=== PATIENT | female | born 1980 | race Caucasian/White ===

== ENCOUNTER 2018-06-04 12:53 | Emergency (ER) | payer OTHER ==
[2018-06-04] MEDS ORDERED: NA CHLORIDE 0.9% 1,000 ML ONE (13:48)
[2018-06-04 14:04] LABS: Absolute Lymphocytes (CBC) 1.1 K/uL (0.7-4.9); Absolute Monocytes 0.2 K/uL (0.1-1.3); Absolute Neutrophil 3.8 K/uL (1.8-8.0); Basophils % 0.6 % (0-1.3); Eosinophils % 0.4 % (0-4.4); Hematocrit 37.6 % (36.0-45.0); Lymphocytes % 21.1 % (15.3-44.8); MPV 9.7 fL (7.6-11.3); Monocytes % 4.3 % (3.3-12.3); RBC Red Blood Cell Count 4.11 M/uL (3.86-4.86)
[2018-06-04 14:16] LABS: Potassium 3.1 mmol/L (3.5-5.1)
[2018-06-04 14:18] LABS: Urine Appearance CLOUDY; Urine Blood 3+ (NEG); Urine Color RED; Urine Glucose NEGATIVE (NEG); Urine Protein 3+ (NEG); Urine Urobilinogen 0.2 mg/dL (0.2-1.0); Urine pH 5.5 (5.0-7.0)
[2018-06-04 14:21] LABS: Urine Blood 3+ (NEG); Urine Glucose NEGATIVE (NEG); Urine Protein 3+ (NEG); Urine pH 5.5 (5.0-7.0)
[2018-06-04] MEDS ORDERED: METHYLERGONOVINE 0.2MG/ML AMP IM ONE (14:21)
[2018-06-04] MEDS ORDERED: MEDROXYPROGESTERONE 5 MG TAB PO ONE (14:30)
[2018-06-04 14:32] LABS: Urine Bilirubin NEGATIVE (NEG)
[2018-06-04 14:57] LABS: Urine Microscopic Reflex ORDER UMIC
[2018-06-04 15:01] LABS: Urine Bacteria <20 /HPF (<20); Urine RBC TNTC /HPF (NONE SEEN)
[2018-06-04 15:02] LABS: Urine Culture Reflex Order REFLEXED
[2018-06-04] MEDS ORDERED: ONDANSETRON 4 MG/2 ML VIAL ONE (15:44)
--- NOTE | 2018-06-04 15:48 | EDPHYS ---
Physician Documentation [facility] Name: Emily Ríos Age: 38 yrs Sex: Female : 1980 Arrival Date: 06/04/2018 Time: 12:57 Bed 4 Private MD: out of town, doctor ED Physician Amauri Crystal HPI: 06/04 18:38 This 38 yrs old Female presents to ER via Wheelchair with complaints of gs Vaginal Bleeding. 18:38 Onset: The symptoms/episode began/occurred 3 month(s) ago. 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 - Social history:: Smoking status: Patient/guardian denies using tobacco. - Ebola Screening: : No symptoms or risks identified at this time. ROS: 19:39 All other systems are negative. gs Exam: 19:39 Head/Face: Normocephalic, atraumatic. Eyes: Pupils equal round and reactive to light, gs extra-ocular motions intact. Lids and lashes normal. Conjunctiva and sclera are non-icteric and not injected. Cornea within normal limits. Periorbital areas with no swelling, redness, or edema. ENT: Nares patent. No nasal discharge, no septal abnormalities noted. Tympanic membranes are normal and external auditory canals are clear. Oropharynx with no redness, swelling, or masses, exudates, or evidence of obstruction, uvula midline. Mucous membranes moist. Neck: Trachea midline, no thyromegaly or masses palpated, and no cervical lymphadenopathy. Supple, full range of motion without nuchal rigidity, or vertebral point tenderness. No Meningismus. Chest/axilla: Normal chest wall appearance and motion. Nontender with no deformity. No lesions are appreciated. Cardiovascular: Regular rate and rhythm with a normal S1 and S2. No gallops, murmurs, or rubs. Normal PMI, no JVD. No pulse deficits. Respiratory: Lungs have equal breath sounds bilaterally, clear to auscultation and percussion. No rales, rhonchi or wheezes noted. No increased work of breathing, no retractions or nasal flaring. Abdomen/GI: Soft, non-tender, with normal bowel sounds. No distension or tympany. No guarding or rebound. No evidence of tenderness throughout. Back: No spinal tenderness. No costovertebral tenderness. Full range of motion. Skin: Warm, dry with normal turgor. Normal color with no rashes, no lesions, and no evidence of cellulitis. MS/ Extremity: Pulses equal, no cyanosis. Neurovascular intact. Full, normal range of motion. Neuro: Awake and alert, GCS 15, oriented to person, place, time, and situation. Cranial nerves II-XII grossly intact. Motor strength 5/5 in all extremities. Sensory grossly intact. Cerebellar exam normal. Normal gait. 19:39 Constitutional: The patient appears in no acute distress, alert, awake. Vital Signs: 13:08 BP 140 / 82; Pulse 130; Resp 18 S; Temp 98.1(O); Pulse Ox 100% on R/A; Weight 52.16 kg aa5 (R); Height 5 ft. 4 in. (162.56 cm) (R); Pain 0/10; 14:44 BP 123 / 71; Pulse 95; Resp 18; Pulse Ox 100% on R/A; tw2 15:20 BP 120 / 67; Pulse 87; Resp 17; Pulse Ox 100% on R/A; tw2 16:34 BP 115 / 76; Pulse 86; Resp 17; Pulse Ox 100% on R/A; tw2 13:08 Body Mass Index 19.74 (52.16 kg, 162.56 cm) aa5 MDM: 13:31 Patient medically screened. 19:39 Differential diagnosis: menometrorrhagia, menorrhea, uterine fibroids. Data reviewed: vital signs, nurses notes, lab test result(s). Physician consultation: HER OB WILL SEE TOMORROW. 06/04 13:25 Order name: UA; Complete Time: 15:41 tw2 06/04 13:35 Order name: Urine Dipstick--Ancillary (enter results); Complete Time: 15:41 ss 06/04 13:35 Order name: CBC with Diff; Complete Time: 15:41 06/04 13:35 Order name: Basic Metabolic Panel; Complete Time: 15:41 06/04 13:35 Order name: T\T\S; Complete Time: 15:41 06/04 13:35 Order name: Urine --Ancillary (enter results); Complete Time: 15:41 06/04 14:38 Order name: ABO/RH no charge; Complete Time: 15:41 EDIN 06/04 15:02 Order name: Urine Microscopic Only; Complete Time: 15:41 EDIN 06/04 15:06 Order name: Urine Culture [facility] 06/04 13:15 Order name: Urine Test (obtain specimen); Complete Time: 13:36 06/04 13:15 Order name: Urine Dipstick-Ancillary (obtain specimen); Complete Time: 13:36 06/04 13:36 Order name: IV Start; Complete Time: 14:04 tw2 Administered Medications: 14:00 Drug: NS 0.9% 1000 ml Route: IV; Rate: 1 bolus; Site: left antecubital; tw2 15:36 Follow up: Response: No adverse reaction; IV Status: Completed infusion; IV Intake: tw2 1000ml 14:25 Drug: Provera 10 mg Route: PO; tw2 15:36 Follow up: Response: No adverse reaction tw2 14:25 Drug: METHERgine 0.2 mg Route: IM; Site: right deltoid; tw2 15:36 Follow up: Response: No adverse reaction tw2 15:32 Drug: Zofran 4 mg Route: IVP; Site: left antecubital; tw2 16:30 Follow up: Response: No adverse reaction; Nausea is decreased tw2 Disposition: 06/04/18 15:46 Discharged to Home. Impression: Abnormal uterine and vaginal bleeding, unspecified. - Condition is Stable. - Discharge Instructions: Abnormal Uterine Bleeding. - Prescriptions for Methergine 0.2 mg Oral tablet - take 1 tablet by ORAL route every 6 hours; 6 tablet. Provera 10 mg Oral tablet - take 1 tablet by ORAL route once daily; 5 tablet. - Work release form, Family Work Release, Medication Reconciliation Form, Thank You Letter, Antibiotic Education, Prescription Opioid Use form. - Follow up: Private Physician; When: Tomorrow. - Problem is an ongoing problem. - Symptoms have improved. Signatures: [facility] Desirae Brennan RN RN aa5 Mehreen King RN RN tw2 Amauri Crystal MD MD Corrections: (The following items were deleted from the chart) 16:34 15:46 06/04/2018 15:46 Discharged to Home. Impression: Abnormal uterine and vaginal tw2 bleeding, unspecified. Condition is Stable. Forms are Work release form, Family Work Release, Medication Reconciliation Form, Thank You Letter, Antibiotic Education, Prescription Opioid Use. Follow up: Private Physician; When: Tomorrow. Problem is an ongoing problem. Symptoms have improved. gs
--- NOTE | 2018-06-04 15:48 | ER ---
Nurse's Notes [facility] Name: Emily Ríos Age: 38 yrs Sex: Female : 1980 Arrival Date: 06/04/2018 Time: 12:57 Bed 4 Private MD: out of town, doctor Diagnosis: Abnormal uterine and vaginal bleeding, unspecified Presentation: 06/04 13:05 Presenting complaint: Patient states: heavy vaginal bleeding with large clots that aa5 began 1 1/2 hours ago. Pt states "I've been dealing with vaginal bleeding but it's never been this heavy and I am supposed to see a supervisor [employer] for a second opinion before I get a hysterectomy done". Pt states "I am soaking a pad every 10 minutes". 13:05 Transition of care: patient was not received from another setting of care. Onset of aa5 symptoms was June 04, 2018. Risk Assessment: Do you want to hurt yourself or someone else? Patient reports no desire to harm self or others. Care prior to arrival: None. 13:05 Method Of Arrival: Wheelchair aa5 13:05 Acuity: SANKET 2 aa5 13:21 Initial Sepsis Screen: Does the patient meet any 2 criteria? HR > 90 bpm. No. Patient's tw2 initial sepsis screen is negative. Does the patient have a suspected source of infection? No. Patient's initial sepsis screen is negative. 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 - Social history:: Smoking status: Patient/guardian denies using tobacco. - Ebola Screening: : No symptoms or risks identified at this time. Screenin:14 Abuse screen: Denies threats or abuse. Nutritional screening: No deficits noted. tw2 Tuberculosis screening: No symptoms or risk factors identified. Fall Risk None identified. Assessment: 13:15 General: Appears in no apparent distress. slender, well groomed, Behavior is tw2 cooperative, anxious. Neuro: Level of Consciousness is awake, alert, obeys commands, Oriented to person, place, time, situation. Cardiovascular: Heart tones S1 S2 Capillary refill < 3 seconds Patient's skin is warm and dry. Respiratory: Airway is patent Respiratory effort is even, unlabored, Respiratory pattern is regular, symmetrical, Breath sounds are clear bilaterally. GI: No signs and/or symptoms were reported involving the gastrointestinal system. Abdomen is flat, Bowel sounds present X 4 quads. : Urine is aries blood, Reports vaginal bleeding that is bright red, with clots, moderate flow. EENT: No signs and/or symptoms were reported regarding the EENT system. Derm: No signs and/or symptoms reported regarding the dermatologic system. Musculoskeletal: Range of motion: intact in all extremities. 14:45 Reassessment: Patient appears in no apparent distress at this time. No changes from tw2 previously documented assessment. Patient and/or family updated on plan of care and expected duration. Pain level reassessed. Patient is alert, oriented x 3, equal unlabored respirations, skin warm/dry/pink. 15:19 Pain: Denies pain. tw2 15:30 Reassessment: Patient appears in no apparent distress at this time. Patient and/or tw2 family updated on plan of care and expected duration. Pain level reassessed. Patient is alert, oriented x 3, equal unlabored respirations, skin warm/dry/pink. pt reports that the "bleeding has slowed way down", provider notified. Reassessment: pt reports nauseousness, provider notified, medicated as ordered. 16:34 Reassessment: Patient appears in no apparent distress at this time. No changes from tw2 previously documented assessment. Patient and/or family updated on plan of care and expected duration. Pain level reassessed. Patient is alert, oriented x 3, equal unlabored respirations, skin warm/dry/pink. 16:34 Reassessment: Patient states symptoms have improved. tw2 Vital Signs: 13:08 BP 140 / 82; Pulse 130; Resp 18 S; Temp 98.1(O); Pulse Ox 100% on R/A; Weight 52.16 kg aa5 (R); Height 5 ft. 4 in. (162.56 cm) (R); Pain 0/10; 14:44 BP 123 / 71; Pulse 95; Resp 18; Pulse Ox 100% on R/A; tw2 15:20 BP 120 / 67; Pulse 87; Resp 17; Pulse Ox 100% on R/A; tw2 16:34 BP 115 / 76; Pulse 86; Resp 17; Pulse Ox 100% on R/A; tw2 13:08 Body Mass Index 19.74 (52.16 kg, 162.56 cm) aa5 ED Course: 12:57 Patient arrived in ED. mr 12:57 out of town, doctor is Private Physician. mr 13:07 Arm band placed on Patient placed in an exam room, on a stretcher. aa5 13:13 Mehreen King RN is Primary Nurse. tw2 13:13 Placed in gown. Bed in low position. Pulse ox on. NIBP on. tw2 13:14 Amauri Crystal MD is Attending Physician. gs 13:18 Triage completed. aa5 13:36 UA Sent. tw2 14:00 Inserted saline lock: 22 gauge in left antecubital area, using aseptic technique. Blood tw2 collected. Missed attempt(s): 22 gauge in left antecubital area. Bleeding controlled, band aid applied, catheter tip intact. 16:33 No provider procedures requiring assistance completed. IV discontinued, intact, tw2 bleeding controlled, No redness/swelling at site. Pressure dressing applied. Administered Medications: 14:00 Drug: NS 0.9% 1000 ml Route: IV; Rate: 1 bolus; Site: left antecubital; tw2 15:36 Follow up: Response: No adverse reaction; IV Status: Completed infusion; IV Intake: tw2 1000ml 14:25 Drug: Provera 10 mg Route: PO; tw2 15:36 Follow up: Response: No adverse reaction tw2 14:25 Drug: METHERgine 0.2 mg Route: IM; Site: right deltoid; tw2 15:36 Follow up: Response: No adverse reaction tw2 15:32 Drug: Zofran 4 mg Route: IVP; Site: left antecubital; tw2 16:30 Follow up: Response: No adverse reaction; Nausea is decreased tw2 Intake: 15:36 IV: 1000ml; Total: 1000ml. tw2 Outcome: 15:46 Discharge ordered by . gs 16:33 Discharged to home ambulatory, with significant other. tw2 16:33 Condition: stable 16:33 Discharge instructions given to patient, significant other, Instructed on discharge instructions, follow up and referral plans. medication usage, Demonstrated understanding of instructions, follow-up care, medications, Prescriptions given X 2. 16:34 Patient left the ED. tw2 Signatures: Daphne Rios Audri RN RN aa5 Mehreen King RN RN tw2 Amauri Crystal MD MD gs
== END 2018-06-04 16:34 | disposition home or self-care (01) ==
LOC: ER 12:53
DX: N93.9 Abnormal uterine and vaginal bleeding, unspecified (principal); Z88.0 Allergy status to penicillin; E03.9 Hypothyroidism, unspecified
CPT/HCPCS: 36415; 80048; 81003; 81015; 81025; 85025; 86850; 86900; 86901; 87086; 87088; 96361; 96372; 96374; 99284; J2210; J2405; J7030